=== PATIENT | female | born 1965 | race Caucasian/White ===

== ENCOUNTER 2017-09-04 05:39 | Emergency (ER) | payer BC ==
[2017-09-04] MEDS ORDERED: hydrOXYzine HCl 50 MG/ML SDV IM ONE (06:06)
[2017-09-04] MEDS ORDERED: Metoclopramide 10 MG/2 ML SDV IM ONE (06:06)
[2017-09-04] MEDS ORDERED: Ketorolac 60 MG/2 ML SDV IM ONE (06:06)
[2017-09-04 07:01] VITALS: BP 117/72
--- NOTE | 2017-09-05 00:38 | ER ---
DATE SEEN: 09/04/2017 CHIEF COMPLAINT: Headache. HISTORY OF PRESENT ILLNESS: This is a 51-year-old female complaining of headache started about 2200 hours, [id number] in intensity, associated with nausea, characteristic of her usual migraine attack. She took Relpax with no improvement. REVIEW OF SYSTEMS: No fever or chills. ALLERGIES: No known allergies. PAST MEDICAL HISTORY: Hypothyroidism and migraine headaches. SOCIAL HISTORY: Does not smoke or drink. She is a dentist by profession. PHYSICAL EXAMINATION: She is in a dark room. Her blood pressure is normal and temperature 97.2. Physical exam was significantly hampered by pain and headache. IMPRESSION: Migraine headache. TREATMENT PLAN: Ketorolac, Vistaril, and Reglan. Symptoms improved to 2/10. She was discharged home. Follow up in the office p.r.n. Return to the ED with any worsening symptoms. /[id number] KENIA/WILLARD
== END 2017-09-04 06:55 | disposition home or self-care (01) ==
LOC: FB.ED 05:39
DX: G43.909 Migraine, unspecified, not intractable, without status migrainosus (principal); E03.9 Hypothyroidism, unspecified
CPT/HCPCS: 96372; 99283; J1885; J2765; J3410

== ENCOUNTER 2023-09-16 15:23 | Emergency (ER) | payer BC ==
[2023-09-16] MEDS ORDERED: Cyclobenzaprine 10 MG Tab PO ONE (15:30)
[2023-09-16] MEDS ORDERED: Ketorolac 30 MG/ML SDV IVPUSH ONE (15:30)
[2023-09-16 17:29] VITALS: BP 127/83; PULSE 74
== END 2023-09-16 17:10 | disposition home or self-care (01) ==
LOC: FB.ED 15:23
DX: S20.212A Contusion of left front wall of thorax, initial encounter (principal); W01.198A Fall on same level from slipping, tripping and stumbling with subsequent striking against other object, initial encounter; Z90.710 Acquired absence of both cervix and uterus
CPT/HCPCS: 71101; 96374; 99283; J1885